=== PATIENT | female | born 1935 | race Caucasian/White ===

== ENCOUNTER → 2018-06-06 17:41 | Outpatient (REF) | payer MEDICARE, OTHER, SELFPAY | LOC: LAB 17:41 | PROVIDERS: Visit Provider Dermatology MOHS-Micrographic Surgery | DX: Z48.817 Encounter for surgical aftercare following surgery on the skin and subcutaneous tissue (principal); Z48.02 Encounter for removal of sutures | CPT/HCPCS: 87070; 87075; 87077; 87186; 87205 ==